=== PATIENT | male | born 1985 | race American Indian/Alaskan Native ===

== ENCOUNTER 2017-03-17 10:11 | Emergency (ER) | payer OTHER ==
--- NOTE | 2017-03-17 10:27 | Emergency Department Report ---
Chief Complaint: Nausea/Vomiting/Diarrhea Stated Complaint: ABD PAIN/N/V Time Seen by Provider: 03/17/17 10:24 - HPI History of Present Illness: patient is a 31 y/o male who presents due to nausea, vomiting and diarrhea that started yesterday. Patient denies any abdominal pain. Patient denies any fever or chills. Patient denies eating anything that might have caused these symptoms. Patient states that he traveled to [place] 2 weeks ago. - ROS Review of Systems: +nausea, + vomiting, + diarrhea. - Exam Vital Signs: Vital Signs 03/17/17 10:21 Temperature 98.1 F Pulse Rate 70 Respiratory 16 Rate Blood Pressure 117/78 O2 Sat by Pulse 100 Oximetry Physical Exam: patient had no abdominal tenderness. MSE screening note: Focused history and physical exam performed. Due to findings the following was ordered:CBC, CMP, URINALYSIS ED Disposition for MSE Condition: Stable
[2017-03-17 10:47] LABS: Basophils % (Auto) 0.3 % (0.0-1.8); Eosinophils % (Auto) 2.4 % (0.0-4.3); Hematocrit 41.3 % (35.5-45.6); Hemoglobin 13.6 gm/dl (11.8-15.2); Mean Corpuscular HGB Conc 33 % (32-34); Mean Corpuscular Hemoglobin 27 pg (28-32); Mean Corpuscular Volume 82 fl (84-94); Platelet Count 158 K/mm3 (140-440); Red Blood Count 5.07 M/mm3 (3.65-5.03); Red Cell Distribution Width 13.4 % (13.2-15.2); White Blood Count 8.2 K/mm3 (4.5-11.0)
[2017-03-17 11:06] LABS: Alanine Aminotransferase 16 units/L (7-56); Albumin 4.5 g/dL (3.9-5); Albumin/Globulin Ratio 1.1 %; Alkaline Phosphatase 51 units/L (35-129); Anion Gap 16 mmol/L; BUN/Creatinine Ratio 12; Blood Urea Nitrogen 13 mg/dL (9-20); Calcium 9.2 mg/dL (8.4-10.2); Carbon Dioxide 28 mmol/L (22-30); Chloride 95.3 mmol/L (98-107); Glucose 107 mg/dL (75-100); Sodium 135 mmol/L (137-145); Total Protein 8.5 g/dL (6.3-8.2)
[2017-03-17] MEDS ORDERED: NACL 0.9% 1000 ML 1,000 ML ONE (11:13)
[2017-03-17] MEDS ORDERED: NACL 0.9% 1000 ML 1,000 ML IV ONE (11:14)
[2017-03-17 11:35] LABS: Bilirubin,Urine NEG (Negative); Blood,Urine NEG (Negative); Ketones,Urine 20 mg/dL (Negative); Leukocyte Esterase,Urine NEG (Negative); Mucus,Urine 3+ /HPF; Nitrite,Urine NEG (Negative)
[2017-03-17] MEDS ORDERED: ZOFRAN IV ONE (11:37)
[2017-03-17] MEDS ORDERED: CARAFATE PO ONE (11:37)
[2017-03-17] MEDS ORDERED: BENTYL PO ONE (11:37)
[2017-03-17] MEDS ORDERED: PEPCID IV ONE (11:37)
--- NOTE | 2017-03-17 11:38 | Emergency Department Report ---
ED N/V/D HPI - General Chief complaint: Nausea/Vomiting/Diarrhea Stated complaint: ABD PAIN/N/V Time Seen by Provider: 03/17/17 11:20 Source: patient, RN notes reviewed Mode of arrival: Ambulatory Limitations: No Limitations - History of Present Illness Initial comments: This is a 31-year-old male, the patient is previously unknown to this provider, he does not have a primary care doctor, denies chronic medical conditions, denies history of abdominal surgeries. Patient was in [place] March 02-. Presents to the ER today with complaint of nausea, vomiting, diarrhea, started a day and a half ago. No family members have similar symptoms. Symptoms started on Thursday night. Emesis is described as clear, orange, and occasionally purple, when the patient consumes sports-related drinks. Diarrhea is described as loose and watery, 3-4 episodes daily, intimately accompanied by more solid formed bowel movements, with no blood, mucus or pus. Patient indicates he is able to drink without difficulty at this time, however he does describe some queasiness with solid food. MD complaint: nausea, vomiting, diarrhea -: Gradual Description of Vomiting: watery Description of Diarrhea: water Associated Abdominal Pain: No Consistency: intermittent Improves with: rest Worsens with: eating Context: foreign travel, possible food poisoning Associated Symptoms: nausea/vomiting. denies: myalgias, chest pain, cough, diaphoresis, fever/chills, headaches, loss of appetite, malaise, shortness of breath, syncope, weakness - Related Data Previous Rx's Medication Instructions Recorded Last Taken Type predniSONE [Deltasone] 20 mg PO QDAY #7 tab 08/16/13 Unknown Rx Prednisone [Prednisone 10 mg 10 mg PO .TAPER #1 tab.ds.pk 06/11/14 Unknown Rx (6-Day Pack, 21 Tabs)] Sulfamethoxazole/Trimethoprim 1 each PO Q12H #14 tablet 06/11/14 Unknown Rx [Bactrim Ds] hydrOXYzine HCL [Atarax] 10 mg PO Q6HR PRN #30 tablet 06/11/14 Unknown Rx Ciprofloxacin HCl [Cipro] 500 mg PO BID #10 tablet 03/17/17 Unknown Rx Metoclopramide [Reglan] 10 mg PO QID PRN #30 tablet 03/17/17 Unknown Rx Promethazine [Phenergan SUPPOS] 50 mg RI Q6H PRN #15 supp.rect 03/17/17 Unknown Rx Allergies Allergy/AdvReac Type Severity Reaction Status Date / Time No Known Allergies Allergy Verified 03/17/17 11:26 ED Review of Systems ROS: Stated complaint: ABD PAIN/N/V Other details as noted in HPI Constitutional: malaise Respiratory: denies: shortness of breath Cardiovascular: denies: chest pain Gastrointestinal: nausea, vomiting, diarrhea. denies: abdominal pain Genitourinary: denies: urgency, dysuria, testicular pain Musculoskeletal: denies: back pain Skin: denies: lesions Neurological: denies: weakness Psychiatric: denies: anxiety ED Past Medical Hx - Past Medical History Previous Medical History?: No - Surgical History Past Surgical History?: No - Social History Smoking Status: Current Every Day Smoker Substance Use Type: Alcohol - Medications Home Medications: Home Medications Medication Instructions Recorded Confirmed Last Taken Type predniSONE [Deltasone] 20 mg PO QDAY #7 tab 08/16/13 Unknown Rx Prednisone [Prednisone 10 mg 10 mg PO .TAPER #1 tab.ds.pk 06/11/14 Unknown Rx (6-Day Pack, 21 Tabs)] Sulfamethoxazole/Trimethoprim 1 each PO Q12H #14 tablet 06/11/14 Unknown Rx [Bactrim Ds] hydrOXYzine HCL [Atarax] 10 mg PO Q6HR PRN #30 tablet 06/11/14 Unknown Rx Ciprofloxacin HCl [Cipro] 500 mg PO BID #10 tablet 03/17/17 Unknown Rx Metoclopramide [Reglan] 10 mg PO QID PRN #30 tablet 03/17/17 Unknown Rx Promethazine [Phenergan SUPPOS] 50 mg RI Q6H PRN #15 supp.rect 03/17/17 Unknown Rx ED Physical Exam - General Limitations: No Limitations General appearance: alert, in no apparent distress - Head Head exam: Present: atraumatic, normocephalic - Eye Eye exam: Present: normal appearance, EOMI. Absent: nystagmus - ENT ENT exam: Present: normal exam, normal orophraynx, mucous membranes moist, normal external ear exam - Neck Neck exam: Present: normal inspection, full ROM. Absent: tenderness, meningismus - Respiratory Respiratory exam: Present: normal lung sounds bilaterally. Absent: respiratory distress, wheezes, rales, rhonchi, stridor, chest wall tenderness, accessory muscle use, decreased breath sounds, prolonged expiratory - Cardiovascular Cardiovascular Exam: Present: regular rate, normal rhythm, normal heart sounds. Absent: bradycardia, tachycardia, irregular rhythm, systolic murmur, diastolic murmur, rubs, gallop - GI/Abdominal GI/Abdominal exam: Present: soft, normal bowel sounds. Absent: distended, tenderness, guarding, rebound, rigid, pulsatile mass - Rectal Rectal exam: Present: deferred - Extremities Exam Extremities exam: Present: normal inspection, full ROM, normal capillary refill. Absent: pedal edema, joint swelling, calf tenderness - Back Exam Back exam: Present: normal inspection, full ROM. Absent: tenderness, CVA tenderness (R), CVA tenderness (L), muscle spasm, paraspinal tenderness, vertebral tenderness - Neurological Exam Neurological exam: Present: alert, oriented X3, normal gait, other (Extraocular movements intact. Tongue midline. No facial droop. Facial sensation intact to light touch in the V1, V2, V3 distribution bilaterally. 5 and 5 strength in 4 extremities.. Sensation is intact to light touch in 4 extremities.). Absent : motor sensory deficit - Psychiatric Psychiatric exam: Present: normal affect, normal mood - Skin Skin exam: Present: warm, dry, intact, normal color. Absent: rash ED Course Vital Signs 03/17/17 03/17/17 03/17/17 10:21 11:15 11:17 Temperature 98.1 F Pulse Rate 70 60 Respiratory 16 16 16 Rate Blood Pressure 117/78 Blood Pressure 108/73 [Left] O2 Sat by Pulse 100 99 Oximetry 03/17/17 13:20 Temperature Pulse Rate 72 Respiratory 16 Rate Blood Pressure Blood Pressure 106/73 [Left] O2 Sat by Pulse 100 Oximetry - Reevaluation(s) Reevaluation #1: 03/17/17 12:06 Requested patient provide a stool sample, thus far has been unable to do so. Reports having a bowel movement earlier on this morning. Reevaluation #2: 03/19/17 19:40 patient was ultimately able to provide a stool sample ED Medical Decision Making - Lab Data Result diagrams: 03/17/17 10:33 03/17/17 10:33 Vital Signs 03/17/17 03/17/17 03/17/17 10:21 11:15 11:17 Temperature 98.1 F Pulse Rate 70 60 Respiratory 16 16 16 Rate Blood Pressure 117/78 Blood Pressure 108/73 [Left] O2 Sat by Pulse 100 99 Oximetry Lab Results 03/17/17 03/17/17 03/17/17 Range/Units 10:33 10:33 10:54 WBC 8.2 (4.5-11.0) K/mm3 RBC 5.07 H (3.65-5.03) M/mm3 Hgb 13.6 (11.8-15.2) gm/dl Hct 41.3 (35.5-45.6) % MCV 82 L (84-94) fl MCH 27 L (28-32) pg MCHC 33 (32-34) % RDW 13.4 (13.2-15.2) % Plt Count 158 (140-440) K/mm3 Lymph % (Auto) 9.5 L (13.4-35.0) % [place] % (Auto) 8.0 H (0.0-7.3) % Eos % (Auto) 2.4 (0.0-4.3) % Baso % (Auto) 0.3 (0.0-1.8) % Lymph # 0.8 L (1.2-5.4) K/mm3 [place] # 0.7 (0.0-0.8) K/mm3 Eos # 0.2 (0.0-0.4) K/mm3 Baso # 0.0 (0.0-0.1) K/mm3 Seg Neutrophils % 79.8 H (40.0-70.0) % Seg Neutrophils # 6.6 (1.8-7.7) K/mm3 Sodium 135 L (137-145) mmol/L Potassium 4.0 (3.6-5.0) mmol/L Chloride 95.3 L (98-107) mmol/L Carbon Dioxide 28 (22-30) mmol/L Anion Gap 16 mmol/L BUN 13 (9-20) mg/dL Creatinine 1.1 (0.8-1.5) mg/dL Estimated GFR > 60 ml/min BUN/Creatinine Ratio 12 % Glucose 107 H (75-100) mg/dL Calcium 9.2 (8.4-10.2) mg/dL Total Bilirubin 0.70 (0.1-1.2) mg/dL AST 21 (5-40) units/L ALT 16 (7-56) units/L Alkaline Phosphatase 51 (35-129) units/L Total Protein 8.5 H (6.3-8.2) g/dL Albumin 4.5 (3.9-5) g/dL Albumin/Globulin Ratio 1.1 % Urine Color Yellow (Yellow) Urine Turbidity Clear (Clear) Urine pH 5.0 (5.0-7.0) Ur Specific [place] 1.031 H (1.003-1.030) Urine Protein 30 mg/dl (Negative) mg/dL Urine Glucose (UA) Neg (Negative) mg/dL Urine Ketones 20 (Negative) mg/dL Urine Blood Neg (Negative) Urine Nitrite Neg (Negative) Urine Bilirubin Neg (Negative) Urine Urobilinogen 2.0 (<2.0) mg/dL Ur Leukocyte Esterase Neg (Negative) Urine WBC (Auto) 2.0 (0.0-6.0) /HPF Urine RBC (Auto) 1.0 (0.0-6.0) /HPF U Epithel Cells (Auto) < 1.0 (0-13.0) /HPF Urine Mucus 3+ /HPF - Medical Decision Making Differential diagnosis: Gastroenteritis, travelers associated diarrhea Assessment and plan: 31-year-old male, returns to the [facility] 10 days ago from travel to [place], with approximately 2 days of nausea, vomiting, diarrhea. Patient is afebrile with reassuring vital signs, currently tolerating liquid feeds, with is soft and benign abdominal examination. May have a component of traveler's diarrhea, however it appears to be very clinically mild. The patient felt improved at the symptomatic therapy and was able to tolerate liquid feeds. Patient will be discharged with nausea medication, as needed pain medication, ciprofloxacin prescription, but instructed to not take the antibiotics unless his symptoms persist for another 5 days. He is reassuring vital signs at this time, and reliable, and he'll be discharged at this time, precautions are reviewed. Critical care attestation.: If time is entered above; I have spent that time in minutes in the direct care of this critically ill patient, excluding procedure time. ED Disposition Clinical Impression: Nausea vomiting and diarrhea Disposition: DC-01 TO HOME OR SELFCARE Is pt being admited?: No Does the pt Need Aspirin: No Condition: Stable Instructions: Traveler's Diarrhea (ED) Additional Instructions: Symptoms most likely coming from Traveler's diarrhea, which is typically a self resolving condition. Drink fluids as tolerated, advance diet gently with bread , rice, apples, toast. Take Reglan as needed for nausea, and if unable to tolerate Reglan, secondary to nausea and vomiting, use Phenergan suppository. Do not consume alcohol for the next 2 weeks. If diarrhea persists for greater than the next 5 days, take ciprofloxacin antibiotic as directed. Return to the ER right away with intractable nausea or vomiting, fevers or chills, chest pain , shortness of breath, inability to tolerate liquid feeds, vomiting blood, defecating blood. Prescriptions: Ciprofloxacin HCl [Cipro] 500 mg PO BID #10 tablet Metoclopramide [Reglan] 10 mg PO QID PRN #30 tablet PRN Reason: Nausea Promethazine [Phenergan SUPPOS] 50 mg RI Q6H PRN #15 supp.rect PRN Reason: Nausea Referrals: PRIMARY CARE, [Primary Care Provider] - 3-5 Days MELISSA KEN MD [Referring] - 3-5 Days DOLLY LÓPEZ MD [Referring] - 3-5 Days Forms: Work/School Release Form(ED)
[2017-03-17] MEDS ORDERED: BENTYL ONE (11:58)
[2017-03-17 13:20] VITALS: BP 106/73
== END 2017-03-17 13:22 | disposition home or self-care (01) ==
LOC: ED 10:11
DX: R11.2 Nausea with vomiting, unspecified (principal); R19.7 Diarrhea, unspecified; F17.210 Nicotine dependence, cigarettes, uncomplicated
CPT/HCPCS: 36415; 80053; 81001; 85025; 87493; 96361; 96374; 96375; 99284; J2405; J7030

== ENCOUNTER 2017-09-04 01:19 | Emergency (ER) | payer SELFPAY ==
[2017-09-04 04:38] VITALS: BP 113/74
[2017-09-04] MEDS ORDERED: BOOSTRIX IM ONE (06:02)
[2017-09-04] MEDS ORDERED: CLEOCIN IM ONE (06:02)
--- NOTE | 2017-09-04 06:02 | Emergency Department Report ---
Abscess Boil HPI - HPI Chief Complaint: Skin/Abscess/Foreign Body Stated Complaint: HEAD BOIL Time Seen by Provider: 09/04/17 05:00 Duration: 4 Days Location: Head Severity: Moderate (7/10) History: Yes Pain (portable at right scalp area), Yes Purulent Drainage (report some drainage.), No Fever, No Numbness, No Foreign Body, No Previous History, No Insect Bite HPI: Patient here and reports that he has swelling" to right side of his had that been ongoing for 4 days and it was in some white drainage. He denies any trauma. Immunizations not up-to-date. Denies any fever or chills. Denies any sore throats or facial pain. Pain is 7 out of 10 and dull. Nothing makes it better and nothing makes it worse. No [id number] medication taken. Home Medications: Previous Rx's Medication Instructions Recorded Last Taken Type predniSONE [Deltasone] 20 mg PO QDAY #7 tab 08/16/13 Unknown Rx Prednisone [Prednisone 10 mg 10 mg PO .TAPER #1 tab.ds.pk 06/11/14 Unknown Rx (6-Day Pack, 21 Tabs)] hydrOXYzine HCL [Atarax] 10 mg PO Q6HR PRN #30 tablet 06/11/14 Unknown Rx Ciprofloxacin HCl [Cipro] 500 mg PO BID #10 tablet 03/17/17 Unknown Rx Metoclopramide [Reglan] 10 mg PO QID PRN #30 tablet 03/17/17 Unknown Rx Promethazine [Phenergan SUPPOS] 50 mg [place] Q6H PRN #15 supp.rect 03/17/17 Unknown Rx Ibuprofen [Motrin] 800 mg PO Q8HR PRN #15 tablet 09/04/17 Unknown Rx Sulfamethoxazole/Trimethoprim 1 each PO Q12H 10 Days #20 tablet 09/04/17 Unknown Rx [Bactrim DS TAB] Allergies/Adverse Reactions: Allergies Allergy/AdvReac Type Severity Reaction Status Date / Time No Known Allergies Allergy Verified 03/17/17 11:26 ED Review of Systems ROS: Stated complaint: HEAD BOIL Other details as noted in HPI Comment: All other systems reviewed and negative Constitutional: no symptoms reported Eyes: denies: eye pain ENT: denies: throat pain, congestion Respiratory: no symptoms reported Cardiovascular: denies: chest pain, palpitations, edema, syncope Gastrointestinal: denies: nausea, vomiting Skin: other (patient reports both to right side of his had with small opening.) Neurological: denies: headache, abnormal gait, vertigo ED Past Medical Hx - Past Medical History Previous Medical History?: No - Surgical History Past Surgical History?: No - Family History Family history: no significant - Social History Smoking Status: Current Every Day Smoker Substance Use Type: Alcohol, Marijuana - Medications Home Medications: Home Medications Medication Instructions Recorded Confirmed Last Taken Type predniSONE [Deltasone] 20 mg PO QDAY #7 tab 08/16/13 Unknown Rx Prednisone [Prednisone 10 mg 10 mg PO .TAPER #1 tab.ds.pk 06/11/14 Unknown Rx (6-Day Pack, 21 Tabs)] hydrOXYzine HCL [Atarax] 10 mg PO Q6HR PRN #30 tablet 06/11/14 Unknown Rx Ciprofloxacin HCl [Cipro] 500 mg PO BID #10 tablet 03/17/17 Unknown Rx Metoclopramide [Reglan] 10 mg PO QID PRN #30 tablet 03/17/17 Unknown Rx Promethazine [Phenergan SUPPOS] 50 mg [place] Q6H PRN #15 supp.rect 03/17/17 Unknown Rx Ibuprofen [Motrin] 800 mg PO Q8HR PRN #15 tablet 09/04/17 Unknown Rx Sulfamethoxazole/Trimethoprim 1 each PO Q12H 10 Days #20 tablet 09/04/17 Unknown Rx [Bactrim DS TAB] ED Abscess Boil Physical Exam - Exam General: Vital signs noted. No distress. Alert and acting appropriately. This is a 32-year-old male well-nourished well-developed in no acute distress. Front/Back of Body, Lg (Color): 1 - Patient with quarter size indurated nonfluctuant area with small opening to Center. No drainage noted. Mild erythema with cellulitic area surrounded extending into right forehead. Tender to palpate. Size: 1 cm Exam: Yes Tenderness (right parietal scalp), Yes Surrounding Cellulites/ Erythema (cellulitis around in indurated area to right parietal scalp extending to right forehead and facial area.), Yes Normal Neurologic Exam (alert and oriented 3, normal gait. No focal deficits), Yes Normal Circulation (patient with good color, sensation, movement and temperature to extremities. +2 pulses to extremities. No clubbing, cyanosis or edema.), No Fluctuance (positive indurated), No Lymphangitis, No Crepitation, No Heart Murmur (S1, S2. Regular rate and rhythm) Exam: Neck: Supple, no adenopathy, full range of motion. Skin clean dry and intact except for small area to right parietal scalp area with minimal induration and nonfluctuant with open into the center. No drainage noted and tender to palpate. Ears to be infected hair follicle I & D Note - I & D Note I & D Note: No need for incision and drainage today. Patient with minimal induration, nonfluctuant and surrounding cellulitis. Small opening into the center without any drainage. Attempted to express drainage from site without any drainage noted. ED Course Vital Signs 09/04/17 09/04/17 02:20 04:37 Temperature 98.9 F Pulse Rate 84 81 Respiratory 18 Rate Blood Pressure 113/74 [Left] O2 Sat by Pulse 100 100 Oximetry - Reevaluation(s) Reevaluation #1: 09/04/17 06:10 She is stable throughout ED stay and was given Boostrix 0.5 mL IM and clindamycin 600 mg IM. He had no adverse reaction Critical care attestation.: If time is entered above; I have spent that time in minutes in the direct care of this critically ill patient, excluding procedure time. ED Medical Decision Making - Medical Decision Making ED course: In the emergency room complaining of infected area with was in 4 days to right side of head. Physical findings for cellulitis with minimal induration and no fluctuance. Patient would open into the center and unable to express any drainage from site. I discussed patient he needs to apply warm compresses 3-4 times a day to facilitate softening and drainage. Patient was given clindamycin 600 mg IM and strict 0.5 mL IM. I discussed the patient he needs to keep affected area clean and dry and that [address] Neosporin ointment that is [id number] to light. I instructed him to follow-up at [facility] in 3 days follow-up cellulitis. Patient discharged home a prescription for Bactrim DS and Motrin ED Disposition Clinical Impression: Cellulitis of scalp Disposition: DC-01 TO HOME OR SELFCARE Is pt being admited?: No Does the pt Need Aspirin: No Condition: Stable Instructions: Cellulitis (ED), Acute Wound Care (ED) Additional Instructions: Please apply warm compresses to affected site 3-4 times a day to facilitate drainage and soft then of cellulitic area. Take Bactrim DS as prescribed this medication is free at [employer]. Take Motrin which will help with pain. Increase your fluid intake Apply Neosporin ointment that is sold [id number] to affected area twice daily Follow-up with outside [facility] in 3 days for follow-up cellulitis If you develop fever, increased redness and swelling. Please return to the emergency room [facility] Prescriptions: Ibuprofen [Motrin] 800 mg PO Q8HR PRN #15 tablet PRN Reason: Pain Sulfamethoxazole/Trimethoprim [Bactrim DS TAB] 1 each PO Q12H 10 Days #20 tablet [facility] - 09/07/17 Forms: Accompanied Note, Work/School Release Form(ED)
== END 2017-09-04 06:24 | disposition home or self-care (01) ==
LOC: ED 01:19
DX: L03.811 Cellulitis of head [any part, except face] (principal); F17.200 Nicotine dependence, unspecified, uncomplicated; F12.10 Cannabis abuse, uncomplicated
CPT/HCPCS: 90471; 90715; 96372